=== PATIENT | female | born 1955 | race Two or more races ===

== ENCOUNTER 2018-09-04 20:17 | Inpatient (IN) | payer OTHER ==
[~2018-09-04] VITALS: Ht 152.4 cm; Wt 57.9 kg
[~2018-09-04 20:17] MED LIST: APR50 PO; BENAZEPRIL HYDR20 M1 PO; CARVEDILOL3.125 M1 PO; COR6 PO; COZ50 PO; GOOD SENSE ASPI81 M3 PO; HYDRALAZINE HCL25 MG PO; IMDUR30 MG PO; METFORMIN ER500 M1 PO; PLA75 PO
[2018-09-04 21:23] LABS: BASOPHIL % 0.5 % (0-2); PLATELET COUNT 281 x10^3mcL (130-400)
[2018-09-04 21:42] LABS: CARBON DIOXIDE 25.2 mmol/L (21-32); CREATININE SERUM 1.2 mg/dL (0.6-1.0); POTASSIUM SERUM 3.7 mmol/L (3.5-5.1)
[2018-09-04 21:47] LABS: ALBUMIN 3.5 g/dL (3.4-5.0); BILIRUBIN TOTAL 0.3 mg/dL (0.20-1.00); TOTAL PROTEIN, SERUM 7.6 g/dL (6.4-8.2)
[2018-09-04] MEDS ORDERED: LIPI20 PO (22:41)
[2018-09-04] MEDS ORDERED: HYDROCHLOROTHIA25 MG PO (22:42)
[2018-09-04] MEDS ORDERED: ISOSORBIDE MONO30 MG PO (22:42)
[2018-09-04] MEDS ORDERED: CARVEDILOL12.5 M1 PO (22:43)
[2018-09-04] MEDS ORDERED: CLONIDINE HCL0.2 MG PO (22:44)
[2018-09-04 23:18] VITALS: BP 155/73
[2018-09-04 23:34] LABS: MAGNESIUM 1.9 mg/dL (1.8-2.4); PHOSPHOROUS 3.6 mg/dL (2.5-4.9)
[2018-09-04 23:40] LABS: CHOLESTEROL/HDL RATIO 2.8
[2018-09-04 23:42] LABS: FREE T4 1.27 ng/dL (0.76-1.46); FREE THYROXINE INDEX 3.7 ug/dL (1.4-4.5); T4(THYROXINE) 10.1 ug/dL (4.7-13.3)
[2018-09-05 03:08] LABS: T3 TOTAL 0.98 ng/mL
[2018-09-05 04:26] VITALS: BP 144/79
[2018-09-05 05:17] LABS: BASOPHIL % 0.2 % (0-2); PLATELET COUNT 228 x10^3mcL (130-400); RED CELL DISTRIBUTION WIDTH 13.7 % (11.5-14.5)
[2018-09-05 05:22] LABS: CALCIUM 8.8 mg/dL (8.5-10.1); CARBON DIOXIDE 25.5 mmol/L (21-32); CREATININE SERUM 1.1 mg/dL (0.6-1.0); POTASSIUM SERUM 3.6 mmol/L (3.5-5.1)
[2018-09-05 07:31] VITALS: BP 145/93
[2018-09-05 08:24] LABS: microscopic required? NO
[2018-09-05 10:50] LABS: urine erythrocyte NEGATIVE (NEGATIVE)
[2018-09-05 11:35] VITALS: BP 140/96
[2018-09-05 15:11] VITALS: BP 135/92
[2018-09-05 19:25] VITALS: BP 133/72
[2018-09-05 23:08] VITALS: BP 91/55
[2018-09-06 03:28] VITALS: BP 1122/61
[2018-09-06 05:28] LABS: BASOPHIL % 0.4 % (0-2); CALCIUM 8.5 mg/dL (8.5-10.1); CARBON DIOXIDE 28.3 mmol/L (21-32); CREATININE SERUM 1.5 mg/dL (0.6-1.0); MAGNESIUM 1.8 mg/dL (1.8-2.4); PHOSPHOROUS 4.5 mg/dL (2.5-4.9); PLATELET COUNT 233 x10^3mcL (130-400); POTASSIUM SERUM 3.6 mmol/L (3.5-5.1); RED CELL DISTRIBUTION WIDTH 13.9 % (11.5-14.5)
[2018-09-06 08:45] VITALS: BP 127/58
[2018-09-06 09:55] VITALS: Ht 152.4 cm; Wt 57.9 kg
[2018-09-06 12:00] VITALS: BP 109/67
[2018-09-06 17:13] VITALS: BP 126/88
[2018-09-06 20:51] VITALS: BP 132/81
[2018-09-07 05:34] VITALS: BP 146/95
[2018-09-07 06:32] LABS: BASOPHIL % 0.4 % (0-2); PLATELET COUNT 250 x10^3mcL (130-400); RED CELL DISTRIBUTION WIDTH 13.4 % (11.5-14.5)
[2018-09-07 06:58] LABS: CALCIUM 8.7 mg/dL (8.5-10.1); CARBON DIOXIDE 27.2 mmol/L (21-32); CREATININE SERUM 1.4 mg/dL (0.6-1.0); MAGNESIUM 1.9 mg/dL (1.8-2.4); PHOSPHOROUS 4.1 mg/dL (2.5-4.9); POTASSIUM SERUM 3.1 mmol/L (3.5-5.1)
[2018-09-07 09:38] VITALS: BP 168/75
[2018-09-07] MEDS ORDERED: DIG125 PO (12:02)
[2018-09-07] MEDS ORDERED: COU5 PO (12:17)
[2018-09-07 13:17] VITALS: BP 125/81
[2018-09-07] MEDS ORDERED: METOPROLOL TART50 MG PO (14:35)
[2018-09-07 15:32] VITALS: BP 125/81
== END 2018-09-07 16:30 | disposition home health service (06) | DRG 291 ==
LOC: ED 20:17 → DU 22:22 → IC 22:22 → DU 09-06 16:59
PROVIDERS: Student in an Organized Health Care Education/Training Program; ADMIT Internal Medicine
DX: I11.0 Hypertensive heart disease with heart failure (principal); N17.0 Acute kidney failure with tubular necrosis; I50.21 Acute systolic (congestive) heart failure; I48.91 Unspecified atrial fibrillation; I16.0 Hypertensive urgency; E11.65 Type 2 diabetes mellitus with hyperglycemia; E02 Subclinical iodine-deficiency hypothyroidism; E78.5 Hyperlipidemia, unspecified; I27.20 Pulmonary hypertension, unspecified; I25.2 Old myocardial infarction; Z68.26 Body mass index [BMI] 26.0-26.9, adult; Z95.5 Presence of coronary angioplasty implant and graft; Z79.84 Long term (current) use of oral hypoglycemic drugs; I25.10 Atherosclerotic heart disease of native coronary artery without angina pectoris
CPT/HCPCS: 82962; 83880; 84439; 94150; J1160; J1650; J1940; J1956; J2405; J3490; J7030; J7050; Q0092

== ENCOUNTER 2018-09-24 22:17 | Observation (INO) | payer OTHER ==
[~2018-09-24] VITALS: Ht 149.9 cm; Wt 55.1 kg
[~2018-09-24 22:17] MED LIST changes: +CARVEDILOL12.5 M1 PO; +CLONIDINE HCL0.2 MG PO; +COU5 PO; +DIG125 PO; +HYDROCHLOROTHIA25 MG PO; +ISOSORBIDE MONO30 MG PO; +LIPI20 PO; +METOPROLOL TART50 MG PO
[2018-09-24 22:21] VITALS: Ht 149.9 cm; Wt 55.1 kg
--- NOTE | 2018-09-24 22:40 | NUR ---
PT BROUGHT IN BY DAUGHTER DUE TO C/O OF VOMITING BLOOD AT HOME AND RLE PAIN, PT DENIES WITH ANY FALL OR INJURY TO RLE, MILD SWELLING TO RLE, UNABLE TO BW AT THIS TIME, ON SURVEILLANCE MONITOR WITH A-FIB, NO VOMITING NOTED AT THIS TIME, PT AAO X 4 WITH MOSTLY MALDIVIAN SPEAKING, FAMILY AT BEDSIDE, WILL CONTINUE TO MONITOR.
--- NOTE | 2018-09-24 22:49 | NUR ---
DR HOBBS AT BEDSIDE AND EVAL PT
[2018-09-24 23:24] LABS: BASOPHIL % 0.5 % (0-2); PLATELET COUNT 250 x10^3mcL (130-400); RED CELL DISTRIBUTION WIDTH 13.5 % (11.5-14.5)
--- NOTE | 2018-09-24 23:27 | NUR ---
PT DE-SATS TO 86% ON ROOM AIR AFTER MEDICATED WITH MORPHINE IVP, PLACED PT ON O2 2L VIA NASAL CANNULA AND SPO2 ABLE TO MAINTAIN ABOVE 95 %.
[2018-09-24 23:33] LABS: CALCIUM 9.4 mg/dL (8.5-10.1); CARBON DIOXIDE 26.8 mmol/L (21-32); CREATININE SERUM 1.3 mg/dL (0.6-1.0); POTASSIUM SERUM 3.4 mmol/L (3.5-5.1)
[2018-09-24 23:38] LABS: ALBUMIN 4.1 g/dL (3.4-5.0); BILIRUBIN TOTAL 0.6 mg/dL (0.20-1.00)
[2018-09-24 23:50] LABS: TOTAL PROTEIN, SERUM 8.3 g/dL (6.4-8.2)
[2018-09-25] VITALS (8 sets, daily range): BP systolic 121–177; BP diastolic 66–100
[2018-09-25] MEDS ORDERED: METFORMIN HYDR500 M1 PO (00:58)
[2018-09-25] MEDS ORDERED: CLONIDINE HCL0.2 MG PO (00:58)
[2018-09-25] MEDS ORDERED: LIPI20 PO (00:59)
[2018-09-25] MEDS ORDERED: ISOSORBIDE MONO30 MG PO (00:59)
[2018-09-25] MEDS ORDERED: COUMADIN5 MG PO (01:00)
[2018-09-25] MEDS ORDERED: HYDROCHLOROTHIA25 MG PO (01:00)
[2018-09-25] MEDS ORDERED: METOPROLOL TART50 MG PO (01:01)
[2018-09-25] MEDS ORDERED: DIGOXIN0.125 M1 PO (01:01)
[2018-09-25] MEDS ORDERED: ASPIR LOW81 MG PO (01:01)
--- NOTE | 2018-09-25 01:08 | NUR ---
PER DR HOBBS GIVE VIT K 5MG IVPB INSTEAD OF 2.5 MG, ORDER CARRIED OUT.
--- NOTE | 2018-09-25 01:08 | NUR ---
RECEVIED TELEPHONE ORDER FROM DR MCPHERSON.
--- NOTE | 2018-09-25 01:11 | NUR ---
VIT K INFUSING AT THIS TIME.
--- NOTE | 2018-09-25 01:17 | NUR ---
DR HBOBS AT BEDSIDE AND UPDATED THE POC.
--- NOTE | 2018-09-25 01:33 | NUR ---
REPORT GIVEN TO RAY-RN, ALL QUESTIONS ANSWERED AND CONCERNS ADDRESSED.
--- NOTE | 2018-09-25 01:40 | NUR ---
RECIEVED PT FROM ER IN STABLE CONDITION. PLACED ON TELE #16, A FIB. AOX4. KHMER SPEAKING. LUNGS CLEAR ON RA. PULSES PALPABLE NO EDEMA. BOWEL SOUNDS ACTIVE. DENIES N/V AT THIS TIME. VOIDS FREELY. AMBULATORY. SKIN INTACT. BRUISE NOTED TO ABD RLQ. C/O R LEG PAIN, 03/17, WILL MEDICATE PER EMAR. IV TO LAC, CDI. ORIENTED TO ROOM. BED IN LOWEST POSITION, 2 SIDE RAILS UP, CALL LIGHT IN REACH. INSTRUCTED TO CALL FOR ASSISTANCE. DAUGHTER AT BEDSIDE.
--- NOTE | 2018-09-25 06:15 | NUR ---
NO C/O N/V OVERNIGHT. MEDICATED WITH PRN NORCO FOR 7/10 LEG PAIN WITH GOOD EFFECT. NO ACUTE CHANGES. NO ACUTE DISTRESS NOTED. WILL ENDORSE TO ONCOMING RN.
[2018-09-25 06:46] LABS: BASOPHIL % 0.2 % (0-2); PLATELET COUNT 227 x10^3mcL (130-400); RED CELL DISTRIBUTION WIDTH 13.6 % (11.5-14.5)
--- NOTE | 2018-09-25 07:30 | NUR ---
RC'D PT RESTING IN BED WITH NO APPARENT SIGNS OF DISTRESS. A/A/O/X4, SPEECH CLEAR AND APPROPRIATE. DENIES BERNARD/DIZZINESS. ON TELE, DENIES CHEST PAIN/PRESSURE. PALP PULSES, NO EDEMA NOTED. RESPIRATIONS EQUAL AND UNLABORED. DIM IN BASES. ON RA, DENIES SOB. ABDOMEN SOFT AND NONTENDER. ACTIVE BS. DENIES N/V. VOIDS FREELY, DENIES BURNING. AMBULATORY. SKIN W/D/I. DENIES PAIN AT THIS TIME. IV PATENT AND INTACT. BED IN LOW POSITION. CALL LIGHT IN REACH. WILL CONTINUE TO MONITOR
--- NOTE | 2018-09-25 08:27 | NUR ---
AM MEDICATIONS GIVEN. PT TOLERATED WELL. RESPIRATIONS EQUAL AND UNLABORED. ON RA, DENIES SOB. DENIES PAIN AT THIS TIME. BED IN LOW POSITION. CALL LIGHT IN REACH. WILL CONTINUE TO MONITOR
--- NOTE | 2018-09-25 09:23 | NUR ---
PT HAVING [id number] MODERATE EMESIS EPISODES, MEDICATED PER EMAR
--- NOTE | 2018-09-25 10:12 | NUR ---
PT C/O OF RLE PAIN, MEDICATED PER EMAR. REPISPIRATIONS EQUAL AND UNLABORED. DENIES SOB. BED IN LOW POSITION. CALL LIGHT IN REACH. WILL CONTINUE TO MONITOR
--- NOTE | 2018-09-25 15:10 | NUR ---
PT RESTING IN BED WITH NO APPARENT SIGNS OF DISTRESS. RESPIRATIONS EQUAL AND UNLABORED. ON RA, DENIES SOB. PT DENIES RLE PAIN AT THIS TIME. BED IN LOW POSITION. CALL LIGHT IN REACH. FAMILY PRESENT AT BEDSIDE. WILL CONTINUE TO MONITOR
--- NOTE | 2018-09-25 19:15 | NUR ---
PT HAVING MULTIPLE SMALL EPISODES OF EMESIS, MEDICATED PER EMAR. ON TELE, DENIES CHEST PAIN/PRESSURE. PT C/O OF RLE PAIN, MEDICATED PER EMAR. RESPIRATIONS EQUAL AND UNLABORED. ON RA, DENIES SOB. RONEY ACUTE SKIN CHANGES NOTED AT THIS TIME. IV PATENT AND INTACT, SL. BED IN LOW POSITION. CALL LIGHT IN REACH. PT ENDORSED TO EXPERIMENTAL ELECTRONICS DEVELOPER RN
--- NOTE | 2018-09-25 20:37 | NUR ---
RECHECKED BLD PRESSURE 171/98, HR 68, SATURATING 95% RA, RR 18, PT A LITTLE ANXIOUS AND WANT TO GO HOME, FAMILY AT BEDSIDE, ASYMTOMATIC, DUE BP MEDS AND CHOL PILLS, GIVEN INDICATED, PT DENIES ABDL PAIN NAUSEA OR VOMITING AT THIS TIME, NO DISTRESS, WILL CONT TO MONITOR.
--- NOTE | 2018-09-25 22:15 | NUR ---
RECHECKED BP 163/91, HR 71, PER FAMILY, PT'S BLD PRESSURE BASELINE AT HOME IS ALWAYS ON THE HIGH SIDE, ABOVE 165/90'S PT IS ASYMTOMATIC, PATIENTS TO GO HOME VLADIMIRIGHT FAMILY ALSO WILLING TO TAKE PT HOME, CALLED DR STEVEN BENDING FRAME OPERATOR FOR DR MCPHERSON, SINCE PT WANTED PRESCRIPTION FOR STRONGER PAIN MEDS, SPOKE TO DR STEVEN AND HE STATED THAT HE CANNOT GIVE PRESCRIPTION ELECTRONICALLY, HE JUST WANT FAMILY TO TAKE PT TO PCP FOR PAIN MEDS, INFORMED PT AND FAMILY, STILL WANT TO GO HOME AND AGREED TO TAKE PT TO PCP FOR PAIN MEDS PRESCRIPTION.
--- NOTE | 2018-09-25 22:30 | NUR ---
REMOVED IV ACCESS, TELE MONITOR AND ID BAND, DISCHARGED PAPERS COMPLETED, INSTRUCTIONS TEACHINGS PROVIDED, PATIENT AND FAMILY RECEPTIVE TO ALL TEACHINGS LOG MARKER ASSIGNED WHEELED PT DOWN.
== END 2018-09-25 22:54 | disposition home or self-care (01) | DRG 813 ==
LOC: ED 22:17 → DU 09-25 01:07
PROVIDERS: Emergency Medicine; ADMIT Internal Medicine Pulmonary Disease
DX: D68.32 Hemorrhagic disorder due to extrinsic circulating anticoagulants (principal); K92.0 Hematemesis; T45.515A Adverse effect of anticoagulants, initial encounter; I48.2 Chronic atrial fibrillation; I11.9 Hypertensive heart disease without heart failure; I25.10 Atherosclerotic heart disease of native coronary artery without angina pectoris; E78.5 Hyperlipidemia, unspecified; Z95.5 Presence of coronary angioplasty implant and graft; Z79.01 Long term (current) use of anticoagulants; Y92.009 Unspecified place in unspecified non-institutional (private) residence as the place of occurrence of the external cause
CPT/HCPCS: C9113; G0378; J2270; J2405; J3430; Q0092

== ENCOUNTER 2019-01-01 15:41 | Emergency (ER) | payer OTHER ==
[~2019-01-01] VITALS: Ht 152.4 cm; Wt 51.7 kg
[~2019-01-01 15:41] MED LIST changes: +ASPIR LOW81 MG PO; +COUMADIN5 MG PO; +DIGOXIN0.125 M1 PO; +METFORMIN HYDR500 M1 PO
[2019-01-01 15:45] VITALS: Ht 152.4 cm; Wt 51.7 kg
[2019-01-01 16:51] VITALS: BP 133/57
== END 2019-01-01 16:51 | disposition home or self-care (01) ==
LOC: ED 15:41
DX: I10 Essential (primary) hypertension (principal); E11.9 Type 2 diabetes mellitus without complications; Z90.49 Acquired absence of other specified parts of digestive tract; Z98.890 Other specified postprocedural states